=== PATIENT | female | born 1950 | race Caucasian/White ===

== ENCOUNTER 2016-12-04 10:33 | Day surgery (SDC) | payer MEDICARE, OTHER ==
[~2016-12-04 10:33] MED LIST: ACIPHEX20 MG PO; ALIGN4 MG PO; ATIVAN1 M2 PO; ATIVAN1 MG PO; AUGMENTIN 875-1 EAC2 PO; AUGMENTIN 875-11 TAB PO; BACLOFEN20 M1 PO; BENTYL10 M1 PO; BENTYL20 M1 PO; BENTYL20 MG PO; CALCIUM CITRAT1 EAC7 PO; CATAPRES0.1 MG PO; CENTRUM SILVER1 EAC3 PO; CRESTOR10 MG PO; CRESTOR20 MG PO; CRESTOR5 MG PO; DAZIDOX20 MG PO; DEXILANT60 M1 PO; ESTRACE42.5 GM; ETODOLAC400 MG PO; ETODOLAC400 MG/TAB PO; FISH OIL 1,2001 EAC5 PO; FLEXERIL10 MG PO; FOLIC ACID0.4 M1 PO; HYDROCHLOROTHIA25 M1 PO; IMODIUM MULTI-1 EAC1 PO; IRON325 M1 PO; JUICE PLUS GARDEN PO; LISINOPRIL20 MG PO; LOPERAMIDE2 M2 PO; LYRICA25 MG PO; LYRICA75 MG PO; MAG 6464 MG PO; MAGNESIUM250 M2 PO; METHSCOPOLAMIN2.5 MG PO; MIRTAZAPINE15 MG PO; MUCINEX600 M1 PO; NEURONTIN300 M1 PO; NEURONTIN600 M1 PO; NEXIUM20 MG PO; NEXIUM40 MG PO; NORCO 5/325 TAB1 TAB PO; NORCO 7.5/325 T1 TAB PO; OXYCODONE HCL20 M3 PO; PAMELOR25 M1 PO; PAMINE2.5 MG PO; PREDNISONE2.5 M1 PO; PREDNISONE20 MG PO; PREMARIN0.625 MG PO; PRINIVIL5 M1 PO; PRISTIQ100 MG PO; PRISTIQ50 MG PO; PRO-OMEGA PO; PROAIR HFA8.5 GM INH; PROBIOTIC1 EACH PO; REMERON15 MG PO; REPATHA SU140 MG/1 M; SERTRALINE HCL100 M5 PO; SIMVASTATIN20 M1 PO; SINGULAIR10 M1 PO; SYNTHROID100 MCG PO; SYNTHROID125 MC1 PO; SYNTHROID125 MCG PO; SYNTHROID150 MCG PO; SYNTHROID175 MCG PO; SYNTHROID88 MCG PO; TYLENOL500 MG PO; ULTRAM50 MG PO; VENTOLIN HFA8 GM IH; VESICARE5 M1 PO; VESICARE5 MG PO; VIIBRYD40 M1 PO; VITAMIN C500 M6 PO; VITAMIN D1000 UNIT PO; VITAMIN D31000 UNI3 PO; VIVELLE DO TP; WELCHOL625 MG PO; WELLBUTRIN XL150 M1 PO; ZOFRAN ODT4 MG PO; ZOFRAN ODT4 MG/UDTAB PO; ZOFRAN8 MG PO; [UNRECOGNIZED DRUG - OTHER] PO
== END 2016-12-05 11:22 ==
LOC: SRG 10:33 → SHSB 10:36 → ORW 12:21 → PACU 13:11 → CAR1 17:21
PROC: 0FT44ZZ Resection of Gallbladder, Percutaneous Endoscopic Approach (ICD-10-PCS; principal; 2016-12-04)
PROC: 0WQF0ZZ Repair Abdominal Wall, Open Approach (ICD-10-PCS; 2016-12-04)
DX: K80.10 Calculus of gallbladder with chronic cholecystitis without obstruction (principal); K42.9 Umbilical hernia without obstruction or gangrene; I10 Essential (primary) hypertension; E03.9 Hypothyroidism, unspecified; F32.9 Major depressive disorder, single episode, unspecified; Z88.8 Allergy status to other drugs, medicaments and biological substances; Z90.710 Acquired absence of both cervix and uterus; Z79.899 Other long term (current) drug therapy
CPT/HCPCS: J0131; J1170; J2250; J2270; J2405; J2550; J3010; J7030